=== PATIENT | female | born 2000 ===

== ENCOUNTER 2021-06-26 10:11 | Outpatient (CLI) | payer OTHER | END 2021-06-26 11:15 | disposition home or self-care (01) | LOC: PRENATAL 10:11 | PROVIDERS: ATTEND Obstetrics & Gynecology Maternal & Fetal Medicine | DX: O26.849 Uterine size-date discrepancy, unspecified trimester (principal); O36.5990 Maternal care for other known or suspected poor fetal growth, unspecified trimester, not applicable or unspecified; Z3A.34 34 weeks gestation of pregnancy ==

== ENCOUNTER 2021-07-21 19:38 | Inpatient (IN) | payer OTHER ==
[~2021-07-21] VITALS: Ht 154.9 cm; Wt 69.9 kg
[2021-07-21] MEDS ORDERED: PRENATAL TABLE1 EAC1 PO (20:58)
== END 2021-07-24 11:39 | disposition home or self-care (01) | DRG 807 ==
LOC: LDR 19:38 → OB/GYN 07-22 21:10
PROVIDERS: ADMIT Obstetrics & Gynecology; ATTEND Obstetrics & Gynecology
PROC: 4A1HXCZ Monitoring of Products of Conception, Cardiac Rate, External Approach (ICD-10-PCS; 2021-07-21)
PROC: 10E0XZZ Delivery of Products of Conception, External Approach (ICD-10-PCS; principal; 2021-07-22)
PROC: 0UQG7ZZ Repair Vagina, Via Natural or Artificial Opening (ICD-10-PCS; 2021-07-22)
PROC: 0UQMXZZ Repair Vulva, External Approach (ICD-10-PCS; 2021-07-22)
DX: O70.0 First degree perineal laceration during delivery (principal); Z37.0 Single live birth; Z3A.38 38 weeks gestation of pregnancy; Z20.822 Contact with and (suspected) exposure to COVID-19